=== PATIENT | female | born 1940 | race Caucasian/White ===

== ENCOUNTER 2016-10-17 10:22 | Inpatient (IN) | payer MEDICARE, OTHER ==
[~2016-10-17] VITALS: Ht 165.1 cm; Wt 81.6 kg
--- NOTE | ~2016-10-17 | CATH ---
Cardiac Diagnostic + PCI Report Demographics Patient Name FELICIANO Badillo Gender Female Date of 1940 Age 76 year(s) Patient Number [id number] Date of Study 10/17/2016 Visit Number [id number] Room Number G6338 [place] [id number] Ht 165.1 cm Wt 82.1 kg Referring Neha Primary Physician Physician Cristal ORTIZ Performing Neha Secondary Physician Physician Cristal ORTIZ Diagnostic Neha Assisting Physician Physician Cristal ORTIZ Interventional Neha Physician E Commerce Marketing Manager Physician Cristal ORTIZ Findings and Conclusions Diagnostic Findings and Conclusion Normal LVEDP 2 Ao 150/80 No gradient. Cause of elevated troponin unclear. LAD stent patent. Ostial Diagonal 1 50% (site of previous POBA) Proximal RCA:80%. Mid RCA: 75%. Diagnostic Recommendations iFR of RCA Interventional Findings and Conclusion Normalized in aorta. iFR distal RCA 0.99 iFR proximal CA 0.99 Interventional Recommendations Ok for cholecystectomy next week. Aggressive secondary preventative measures. Stress in 6 months. Procedure Description The patient was brought to the diagnostic cardiac catheterization-EP laboratory in the fasting, non-sedated state. Informed consent was obtained in the written and verbal form after the risks and benefits were explained. The patient had no further questions and agreed to proceed. The planned puncture-incision site(s) were shaved and prepped with ChloraPrep and draped in the usual sterile manner. Conscious sedation, supplemental oxygen, and pain control medications were delivered by a registered nurse under physician guidance. Surface ECG rhythm, blood pressure measurement, and pulse oximetry were monitored throughout the procedure. Arterial access. The access site was infiltrated with lidocaine. The vessel was entered with the Seldinger technique. A sheath was advanced into the vessel and used for catheter placement. Selective left coronary angiography. A catheter was advanced into the left coronary vessel ostium under Fluoroscopic guidance. Contrast was injected by hand. Images were obtained in multiple projections. Selective right coronary angiography. A catheter was advanced into the right coronary vessel ostium under fluoroscopic guidance. Contrast was injected by hand. Images were obtained in multiple projections. Left heart catheterization. A catheter was advanced across the aortic valve to the left ventricle under fluoroscopic guidance. Resting hemodynamics were obtained. iFR measurement was performed. The vessel was entered with a guiding catheter. The iFR wire was normalized and then advanced across the lesion. Measurements were taken. Arterial artery hemostasis was achieved. The patient was transferred to a regular nursing floor via cart accompanied by a nurse. The patient left the laboratory in stable condition. Diagnostic Cath Status: Urgent Interventional Cath Status: Urgent Procedure Procedure Type Diagnostic procedure:Angiography:, Coronary Angios /[facility] PCI procedure:Additional Imaging:, FFR/iFR:, Initial Vessel Indications: Non-ST elevation OR. The procedure was explained in detail to the patient. Risks, complications and alternative treatments were reviewed. Written consent was obtained. Medications Reviewed with Patient prior to Procedure. Angiographic Findings Dominance: Right Cardiac Arteries and Lesion Findings LMCA: Normal (0% Stenosis).Short LAD: Proximal lesion is long smooth 25%. LAD is type 3. Mid LAD stent patent.There is a previous stent on Mid LAD Ostial. Lesion on Prox LAD: 25% stenosis . Lesion on 1st Diag: Ostial.50% stenosis . LCx: Moderate diffuse disease. Lesion on Prox CX: 30% stenosis .The lesion was diffuse. RCA: Moderate diffuse disease. Lesion on Mid RCA: FFR + + + + !FFR !Stage/Medication !Dosage ! + + + + !0.99 ! ! ! + + + + Devices used - Verrata Pressure Wire. Number of passes: 1. Lesion on Prox RCA: 80% stenosis . Lesion on Mid RCA: 80% stenosis .The lesion was diffuse. Coronary Tree Procedure Data Procedure Date Date: 10/17/2016Start: 03:05 PMEnd: 04:20 PM Entry Locations - Retrograde Percutaneous access was performed through the Right Radial artery (Primary location). A 6 Fr sheath was inserted. Unsuccessful closure attempt was performed using: an R band. Hemostasis was successfully obtained using Mechanical Compression. Closure Comments: 14 cc of air in the R band deployed by . Procedure Medications Order and Administration + + +--------+ + !Time !Medication !Dosage !Route ! + + +--------+ + !10/17/2016 !Versed !1 mg !I.V. ! !03:02 PM ! ! ! ! + + +--------+ + 10/17/2016 !Fentanyl !50 mcg !I.V. ! !03:02 PM ! ! ! ! + + +--------+ + 10/17/2016 !ZANE Radial Cocktail: Nitroglycerin ! !I.A. ! !03:08 PM !100mcg, Verapamil 3 mg, Lidocaine 40mg ! ! ! ! !(ACC_3) ! ! ! + + +--------+ + !10/17/2016 !0.9% NaCl !125 !I.V. drip ! !03:11 PM ! !ml/hr ! ! + + +--------+ + !10/17/2016 !Heparin (ACC_3) !2500 !I.V. bolus! !03:22 PM ! !units ! ! + + +--------+ + !10/17/2016 !Heparin (ACC_3) ! !I.V. bolus! !03:47 PM ! ! ! ! + + +--------+ + Devices Used - A6 Fr. BS JR 4 Diag. Catheterwas used for:Right coronary angiography. - A6 Fr. BS JL 3.5 Diag. Catheterwas used for:Left coronary angiography. - A6 Fr. JR4 Guide Catheterwas used for:RCA Intervention. Contrast Material - Isovue 158257 ml Fluoroscopy Time: Diagnostic: 8:42 minutes. Total: 8:42 minutes. Fluoroscopy Dose: Diagnostic: 1203 mGy. Total: 1203 mGy. Estimated Blood Loss: 30 ml. Additional [facility] PCI Information PCI Indication:PCI for high risk Non-STEMI or unstable angina. Medical History Allergies - Iodine. - Iodine. Risk Factors The patient risk factors include:prior PCI on 05/08/2015;treated hypercholesterolemia, treated hypertension, family history of premature CAD, last creatinine: 0.9 mg/dl, creatinine clearance: 70 ml/min, dyslipidemia and prior OR . Admission Data Admission Date: 10/17/2016 Admission Time: 01:48 PM Admit Source: Emergency department Insurance Payors: Medicare. Admission Medications + +------+------+ + + + + !Medication !Dosage!Times !Last !Last !Administered !Comments ! ! ! !Per !Delivery !Delivery ! ! ! ! ! !Day !Date !Time ! ! ! + +------+------+ + + + + !Aspirin ! ! ! ! !Yes ! ! !(any) ! ! ! ! ! ! ! + +------+------+ + + + + !Statin (any)! ! ! ! !Yes ! ! + +------+------+ + + + + !Beta Kyler! ! ! ! !Yes ! ! !(any) ! ! ! ! ! ! ! + +------+------+ + + + + !BRIAN ! ! ! ! !Yes ! ! !Inhibitor ! ! ! ! ! ! ! !(any) ! ! ! ! ! ! ! + +------+------+ + + + + !ARB (any) ! ! ! ! !Yes ! ! + +------+------+ + + + + !Ticagrelor ! ! ! ! !Yes ! ! + +------+------+ + + + + Clinical Evaluation Leading to Procedure - The patient's CAD presentation was assessed as: Non-STEMI. - There were no anginal symptoms. Anti-anginal medications were prescribed during the past two weeks. The medication is: Beta Blockers. Hemodynamics Condition: Rest O2 Consumption: Estimated: 173.27Heart Rate: 71 bpm Pressures (mmHg) +-----+ + !Site !Pressure ! +-----+ + !LV !152/3 ,8 ! +-----+ + !LV !155/-3 ,2 ! +-----+ + !LV !147/-3 ,2 ! +-----+ + !AO !159/88 (119) ! +-----+ + !LV !145/0 ,1 ! +-----+ + !AO !143/77 (107) ! +-----+ + !AO !159/78 (112) ! +-----+ + Valve Gradients and Areas + +---------+---------+---------+ +---------+ + !Valve !Peak !Mean !Area !Index !Flow !Source ! + +---------+---------+---------+ +---------+ + !Aortic !0 !0 ! ! ! ! ! + +---------+---------+---------+ +---------+ + !Aortic !0 !0 ! ! ! ! ! + +---------+---------+---------+ +---------+ + Shunts Oxygen Values O2 Capacity 195.84 O2 Consumption 173.27 Discharge Data Discharge Date: 10/18/2016 Hospital Status: Inpatient Signatures dtt: Cristal Solomon dtmarely: 10/17/16 1505 Physician Self Edit
--- NOTE | ~2016-10-17 | HP ---
PATIENT'S NAME: JESSE WIGGNIS [facility] AGE: 76 Y [address] ROOM: [place] [address] LOCATION: GPCU ADMIT DATE: 10/17/2016 History & Physical DISCHARGE DATE: FAMILY PHYSICIAN: LUCIO VENCES ATTENDING PHYSICIAN: Aminata KEMP DATE OF SERVICE: CHIEF COMPLAINT: Epigastric pain. HISTORY OF PRESENT ILLNESS: The patient is a 76-year-old female with past medical history of CAD, status post stent on May 2015 on the LAD, hypertension, hyperlipidemia, who presents here with epigastric pain from [facility]. The patient reports that around 5:21 a.m., she experienced sharp sudden epigastric pain. She reports that the pain radiates to her right upper quadrant and to the back. It was associated with nausea and vomiting. She reports that she had 3-4 episodes of nausea and vomiting, nonbloody. She reports the pain was constant without exacerbating and alleviating factors. The patient reports that she has not taken any of her medication today and went to [facility]. At [facility], the patient was evaluated and was noted to have elevated bilirubin and was transferred to our emergency department for further evaluation. The patient reports that she has had these bouts of abdominal pain twice in the past, close to 4-7 weeks ago. The patient denies any chest pain, shortness of breath, fever, productive cough, orthopnea, leg swelling, and paroxysmal nocturnal dyspnea. MEDICAL HISTORY: CAD, hypertension, hyperlipidemia. SURGICAL HISTORY: , coronary angiogram, tonsillectomy. FAMILY HISTORY: Mother had a history of coronary artery disease. Dad was a healthy gentleman. 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 MEDICATIONS: Currently being reconciled. REVIEW OF SYSTEMS: All systems have been reviewed and are negative except for what I mentioned in PATIENT'S NAME: JESSE WIGGINS [facility] AGE: 76 Y [address] ROOM: [place] [address] LOCATION: GPCU ADMIT DATE: 10/17/2016 History & Physical DISCHARGE DATE: FAMILY PHYSICIAN: LUCIO VENCES ATTENDING PHYSICIAN: Aminata KEMP the HPI. PHYSICAL EXAMINATION: VITAL SIGNS: Afebrile, blood pressure 186/86, heart rate of 63, respiratory rate of 16, and 97% saturating on room air. GENERAL APPEARANCE: The patient alert and awake. No acute distress. HEAD: Normocephalic, atraumatic. EYES: Extraocular muscle intact. SKIN: Warm to touch. MOUTH: Moist oral mucosa. NOSE: No nasal discharge. EARS: No ear discharge. HEART: Regular rate and rhythm. No murmurs, rubs, or gallops. LUNGS: Clear to auscultation bilaterally. ABDOMEN: Mild epigastric tenderness. No guarding. No rebound. Also right upper quadrant tenderness. Positive Santiago sign. Bowel sounds present. Abdomen is soft, nondistended. HOBBING PRESS OPERATOR: The patient alert and oriented x3. Motor and sensory grossly intact. MUSCULOSKELETAL: Range of motion intact. No obvious joint effusion. LABS: Troponin 0.065. White blood cell count of 6.2, hemoglobin 14.4, platelet of 226, glucose 123, BUN 18, creatinine 0.9. Sodium 139, potassium 3.7, chloride 104, CO2 28, albumin 3.8, AST/ALT 128/94, alkaline phosphatase of 76, total bilirubin of 1.7. Ultrasound of right upper quadrant done, positive for cholelithiasis and swelling of the gallbladder wall per Dr. Morgan, preliminary report. EKG shows normal sinus rhythm. Normal axis. No ischemic ST and T-wave changes. ASSESSMENT AND PLAN: 1. Acute cholecystitis. The patient does not appear septic. White blood cells within normal limits. No fever or chills. We will keep the patient n.p.o., discussed case with Dr. Qureshi for possible cholecystectomy. To hold aspirin for now. The patient is being seen by caseworker for cardiac clearance. The patient is having echocardiogram currently. To keep the patient n.p.o. for possible cholecystectomy. 2. Elevated troponin most likely secondary to [id number] elevation myocardial infarction, type 2 due to demand. Denies any chest pain. EKG unremarkable. Troponin mildly elevated. Cardiology on board for cardiac clearance. 3. History of coronary artery disease. We will continue Lipitor and beta parker. To hold aspirin for now, we will await for Cardiology PATIENT'S NAME: JESSE WIGGINS [facility] AGE: 76 Y [address] ROOM: [address] [place] [id number] LOCATION: [facility] ADMIT DATE: 10/17/2016 History & Physical DISCHARGE DATE: FAMILY PHYSICIAN: LUCIO VENCES ATTENDING PHYSICIAN: Aminata KEMP recommendation in terms of aspirin use. 4. Hypertension uncontrolled. The patient reports that she is not taking her medication and there might be some component of pain. We will control pain. We will start Lopressor. 5. Dehydration. The patient reports multiple nausea and vomiting. We will start the patient on IV fluid. We will hold diuretic medication. 6. Nausea and vomiting. We will have antiemetic medication. 7. Epigastric pain. Pain controlled. 8. Hypothyroidism. Continue Synthroid. 9. Obesity, ongoing. Greater than 40 minutes was spent on patient care. Assessment and plan was discussed with the patient and Dr. Qureshi and Dr. Morgan. We will await the Cardiology recommendation. We will keep the patient n.p.o. Greater than 50% of time was spent on discussion with webmethods consultant and data gathering. We will admit the patient over inpatient. Code status was discussed with the patient on admission. CODE STATUS: Full code. MD THOMAS WAY/salvatore /[id number] D: [id number] T: 549 HISTORY & PHYSICAL
--- NOTE | ~2016-10-17 | CON ---
PATIENT'S NAME: JESSE WIGGINS [facility] AGE: 76 Y [address] ROOM: [place] [address] [facility] ADMIT DATE: 10/17/2016 Consultation DISCHARGE DATE: FAMILY PHYSICIAN: LUCIO VENCES ATTENDING PHYSICIAN: Aminata KEMP DATE OF CONSULTATION: 10/17/2016 REFERRING PHYSICIAN: Basil Qureshi MD CHIEF COMPLAINT: Abdominal pain. HISTORY OF PRESENT ILLNESS: The patient is a 76-year-old female who said approximately 6 weeks ago, she had a bout of severe abdominal pain, described in the right upper quadrant and right subcostal region with radiation into the back. She said this happened after eating corn with butter on it. She did not have another episode until 3 weeks ago where she described similar symptoms of pain in the right upper quadrant and radiation into the back. She had a bout today. This woke her up at 5 a.m. where she developed right upper quadrant pain with radiation into the back as well as nausea and vomiting. The patient states that in between this, she does get some intermittent heartburn. It seems to be worse with greasier meals, but has not had severe pain. She was seen in [place] today where she was felt to have acute cholecystitis. Her white blood cell count was normal. Bilirubin was at 1.6. She was then sent to [facility] for further evaluation. She had an ultrasound of the right upper quadrant that revealed gallstones and gallbladder wall thickening. No pericholecystic fluid. By the time she was seen at [facility], her pain essentially had subsided; however, she had some epigastric pain with this, and cardiac enzymes were drawn. She had elevation of her cardiac enzymes and does carry a history of coronary artery disease with previous stenting. Her enzymes were followed, and there was further elevation. Present because of this, Cardiology was consulted. CURRENT MEDICATIONS: Include: 1. Calcium. 2. Aspirin. 3. Carvedilol. 4. Levothyroxine. 5. Atorvastatin. 6. Hyzaar. 7. Vitamin D. ILLNESSES: PATIENT'S NAME: JESSE WIGGINS [facility] AGE: 76 Y [address] ROOM: [place] [address] LOCATION: GPCU ADMIT DATE: 10/17/2016 Consultation DISCHARGE DATE: FAMILY PHYSICIAN: LUCOI VENCES ATTENDING PHYSICIAN: Aminata KEMP Coronary artery disease and hypercholesterolemia. SOCIAL HISTORY: She is a nonsmoker and nondrinker. PAST SURGICAL HISTORY: , stent in May 2015. ALLERGIES: BRIAN INHIBITOR CAUSES COUGH. REVIEW OF SYSTEMS: She denies headache or vision changes. Had some chest pain with the epigastric pain. Denies shortness of breath. She has had no melena or hematochezia. No hematuria or dysuria. No frequent postprandial nausea. PHYSICAL EXAMINATION: GENERAL: A pleasant, cooperative, 76-year-old female who currently is in no acute distress. HEENT: Head is normocephalic and atraumatic. Eyes are anicteric. NECK: Without lymphadenopathy. HEART: Regular rate and rhythm. No murmurs audible. LUNGS: Clear to auscultation bilaterally. ABDOMEN: Soft. It is currently nontender to palpation. There are no palpable masses. She has a vertical midline incision from previous section. EXTREMITIES: Otherwise warm. No edema. NEUROLOGIC: Gross motor is intact. ASSESSMENT: 1. Biliary colic with cholelithiasis. 2. Elevated cardiac enzymes. PLAN: At this point in time, she is being evaluated by Cardiology who felt, with her increasing cardiac enzymes and history of coronary artery disease, that she should have a cardiac catheterization. Currently, she does not have an acute abdomen, really is having no abdominal pain, and it is reasonable to continue to watch her gallbladder, although I think it would be best to remove the gallbladder in the near future. We will await her cardiac cath results, but likely will plan cholecystectomy as an outpatient as her symptoms really do sound more like biliary colic. PATIENT'S NAME: JESSE WIGGINS [facility] AGE: 76 Y [address] ROOM: [address] [place] [address] LOCATION: GPCU ADMIT DATE: 10/17/2016 Consultation DISCHARGE DATE: FAMILY PHYSICIAN: LUCIO VENCES ATTENDING PHYSICIAN: Aminata KEMP MD CECILIA SOLIS/salvatore /[id number] d: 10/17/16 1849 t: 10/30/16 1331, CONSULTATION REPORT
--- NOTE | ~2016-10-17 | ECHO ---
Transthoracic Echocardiography Report (TTE) Demographics Patient Name JESSE WIGGINS Date of Study 10/17/2016 J Patient Number [id number] Visit Number [id number] Date of 1940 Room Number G6338 Gender Female Number Age 76 year(s) Referring Eddie Willis MD Crm Administrator Esequiel Rausch RDCS, RVT, Physician RDMS, CLASSROOM TEACHER Physician Interpreting Neha Bee MD Ball Worker Physician Supervising Ordering Eddie Willis MD, MD/MLP Physician Nurse Stress Linderman Machine Operator Conclusions Contractility Score Summary Normal Left Ventricular contractility was noted. Summary The estimated left ventricular ejection fraction is 60-65% with normal WM. The left ventricle is normal in size . Mild to moderate concentric left ventricular hypertrophy. Elevated left ventricular filling pressures. Increased LA pressures. Moderate mitral annular calcification. Mild to moderate calcification of the mitral valve. Mild-moderate mitral regurgitation by color Doppler. There is a 3 cm. focal calcified plaque in the ascending aorta near the aortic root. The aortic valve is mildly sclerotic. Mild-moderate tricuspid regurgitation by color Doppler. There is mild pulmonary hypertension. The pulmonary pressure (RVSP) is 38 mmHg. Procedure Type of Study TTE procedure:2D Echocardiogram, M-Mode, Doppler , Color Doppler. Procedure Date Date: 10/17/2016 Start: 12:18 PM Study Location: ER Technical Quality: Adequate visualization Additional Indications:HX: Stent cardiac, Elevated troponins, chest discomfort. Patient Status: STAT HR: 62 bpm BP: 186/86 mmHg Allergies - Iodine. - Iodine. M-Mode/2D Measurements LV Diastolic Dimension: 3.8 cm LV Systolic Dimension: 2.45 cm LV Septum Diastolic: 1.35 cm LV PW Diastolic: 1.29 cm AO Root Dimension: 2.4 cm AV Cusp Separation: 2.4 cm RV Diastolic Dimension: 3.3 cm LA Dimension: 3.6 cm EF Estimated: 65 % LA volume: 54 ml RV Base: 3.2 cm LVOT: 1.9 cm RV Mid: 2.5 cm RV Length: 5.5 cm TDI-S': 17 cm/s Doppler Measurements AV Peak Velocity: 1.19 m/s MV Peak E-Wave: 0.8 m/s AV Peak Gradient: 5.66 mmHg MV Peak A-Wave: 1.25 m/s LVOT Peak Velocity: 1.01 m/s MV E/A Ratio: 0.64 MV P1/2t: 104 msec TR Velocity:2.97 m/s TR Gradient:35.28 mmHg Estimated RVSP: 38 mmHg PV Peak Velocity: 1.05 m/s E' Septal Velocity: 0.04 m/s PV Peak Gradient: 4.41 mmHg E' Lateral Velocity: 0.04 m/s Estimated PASP: 38.28 mmHg MV E/E' Ratio: 20 A' Septal Velocity: 0.11 m/s Findings Left Ventricle The left ventricle is normal in size . Mild to moderate concentric left ventricular hypertrophy with normal EF and WM. E/e' ratio of 20 is consistent with elevated left ventricular filling pressures. Right Ventricle Normal right ventricle structure and function. Left Atrium Normal left atrial size. Increased LA pressures. Right Atrium Normal right atrial size. IVC imaging is consistent with normal RA pressures. Mitral Valve Moderate mitral annular calcification. Mild to moderate calcification of the mitral valve. Mild-moderate mitral regurgitation by color Doppler. Aortic Valve There is a 3 cm. focal plaque near the aortic root. The aortic valve is mildly sclerotic. Tricuspid Valve Mild-moderate tricuspid regurgitation by color Doppler. There is mild pulmonary hypertension. The pulmonary pressure (RVSP) is 38 mmHg. Pulmonic Valve Normal pulmonic valve structure and function. Pericardial Effusion No evidence of pericardial effusion. Miscellaneous There is moderate plaque seen in the ascending aorta. Pleural Effusion No evidence of pleural effusion. Signature dtt: Cristal Solomon dtd: 10/17/16 1218 Physician Self Edit
--- NOTE | ~2016-10-17 | DS ---
PATIENT'S NAME: JESSE WIGGINS [facility] AGE: 76 Y [address] ROOM: [id number] [place], [place] [address] LOCATION: GPCU ADMIT DATE: 10/17/2016 Discharge Summary DISCHARGE DATE: 10/18/2016 FAMILY PHYSICIAN: Selene Mercado ATTENDING PHYSICIAN: Aminata Alcazar ADMITTING DIAGNOSIS: Acute cholecystitis. DISCHARGE DIAGNOSIS: Acute cholecystitis. SECONDARY DIAGNOSES: 1. Elevated troponin. 2. History of coronary artery disease. 3. Hypertension. 4. Hyperlipidemia. PROCEDURES DONE: Echocardiogram which shows ejection fraction of 60% to 65%. Ultrasound shows thickened gallbladder with stone. Coronary angiogram shows a lesion of stenosis of 80% with normal FFR, with no intervention by Dr. Solomon. CONSULTATIONS: Cardiology and General Surgery. HISTORY OF PRESENT ILLNESS: The patient is a 76-year-old female with a past medical history of CAD, status post stent in April 2005 on the LAD; hypertension; and hyperlipidemia, who presents here with epigastric pain from [facility]. The patient reports that around 5:21 a.m., she experienced sharp, sudden epigastric pain. She reports that the pain radiated to her right upper quadrant and back and was associated with nausea and vomiting. The patient had 3 to 4 episodes of nausea and vomiting, nonbloody. The patient reports that the pain was constant without exacerbating or alleviating factors. The patient reports that she has not taken any of her medications today and went to [facility]. At the [facility], the patient was evaluated, was noted to have elevated bilirubin, and was transferred to our emergency department for further evaluation. HOSPITAL COURSE: The patient was initially seen in the emergency department. Her ultrasound shows gallbladder wall thickening and mildly elevated troponin. Echocardiogram was unremarkable. However, repeat cardiac enzyme was noted to be mildly elevated. Dr. Solomon was consulted. Dr. Solomon assessed. The patient had coronary angiogram. Angiogram showed lesion of 80%; however, was not intervened as the FFR was within accepted physiology changes. The patient, during stay, did not have any chest pain. She was observed overnight. Dr. Qureshi saw the patient. The patient is scheduled to have surgery on Thursday. The patient also was okayed to continue her baby aspirin PATIENT'S NAME: JESSE WIGGINS [facility] AGE: 76 Y [address] ROOM: [facility] [place] [address] LOCATION: GPCU ADMIT DATE: 10/17/2016 Discharge Summary DISCHARGE DATE: 10/18/2016 FAMILY PHYSICIAN: Selene Mercado ATTENDING PHYSICIAN: Aminata Alcazar per Dr. Qureshi. CONDITION: Stable. DISPOSITION: Home DISCHARGE MEDICATIONS: Please see MAR. FOLLOWUP: To follow up with Dr. Qureshi and Dr. Herrera as outpatient. PHYSICAL EXAMINATION: VITAL SIGNS: Stable. HEENT: Head is normocephalic and atraumatic. CHEST: Clear to auscultation bilaterally. HEART: Regular rate and rhythm. No murmurs, rubs, or gallops. ABDOMEN: Soft, nontender, and nondistended. Bowel sounds present. SKIN: Warm to touch. CENTRAL NERVOUS SYSTEM: Alert and awake. Moves all extremities. Greater than 30 minutes were spent on patient care. MD THOMAS WAY/salvatore /[id number] d: 10/18/16 1521 t: 11/01/16 1552, DISCHARGE SUMMARY
--- NOTE | ~2016-10-17 | CON ---
PATIENT'S NAME: MELISSA BENITEZ [facility] AGE: 76 Y [address] ROOM: [address] [place], [place] [address] LOC[facility] ADMIT DATE: 10/17/2016 Consultation DISCHARGE DATE: FAMILY PHYSICIAN: LUCIO VENCES ATTENDING PHYSICIAN: Aminata KEMP DATE OF CONSULTATION: 10/17/2016 REFERRING PHYSICIAN: Basil Qureshi MD This is a patient of Dr. Morgan. Dear Dr. Morgan, Thank you for asking me to see Melissa who is a 76-year-old female patient who presented to [facility] [place] with right upper quadrant pain radiating through to the back. The pain was quite severe and lasted quite a while. Initial evaluation there revealed elevated troponin and she was sent over here for further management. The patient has history of right upper chest, right shoulder, and right arm pain, associated with shortness of breath in May of 2015, which ended up being a [id number] elevation IL. She underwent a drug-eluting stent to mid LAD and a plain old balloon angioplasty to a diagonal. There was a residual 60% lesions x2 in the right coronary artery. She is being managed medically at this time. Since then, she has not had any chest pains of any kind. About 6 weeks ago, she had same pain that she had today, which is consistent with gallbladder pain. This reoccurred about 3 weeks ago as well, but this time it was a lot severe and she ended up going to her doctor. The patient has not had any symptoms like her non-STEMI pain. She has been in functional class 2 with no paroxysmal nocturnal dyspnea or orthopnea. She has never been diagnosed with sleep apnea. She does not have a structured exercise program. She does mow the lawn 2 times a week by walking behind a self-propelled charge operator. It appears as if she might do that for about half an hour or so, then stop for about 15-20 minutes and do that again. She denies any lightheadedness, dizziness, syncope, presyncope, palpitations, or ankle swelling. The patient has history of hypertension and elevated cholesterol. There is some family history of premature coronary artery disease in her mother having bypass grafting in her 60s. There is no history of diabetes or tobacco abuse. The patient has no history of rheumatic fever or heart murmur. She has no history of congestive heart failure or atrial fibrillation. Last year when she had her non-STEMI, her septum was significantly PATIENT'S NAME: MELISSA BENITEZ [facility] AGE: 76 Y [address] ROOM: [address] [address] LOCATION: [facility] ADMIT DATE: 10/17/2016 Consultation DISCHARGE DATE: FAMILY PHYSICIAN: LUCIO VENCES ATTENDING PHYSICIAN: Aminata KEMP. MEDICATIONS: Her current list of medications are: 1. Aspirin 81 mg a day. 2. Carvedilol 12.5 mg b.i.d. 3. Levothyroxine 100 mcg a day. 4. Atorvastatin 40 mg a day. 5. Hyzaar 100/25 half a tablet once a day. 6. Vitamin D3 1000 units a day. ALLERGIES: BRIAN INHIBITORS CAUSED HER COUGH. PAST MEDICAL HISTORY: 1. Disk surgery in 2003. 2. Tonsillectomy and adenoidectomy. 3. . SOCIAL HISTORY: The patient is . 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 She denies abusing alcohol. Her appetite and weight are stable. Sleep is fair. She does not use any recreational drugs. FAMILY HISTORY: Positive for premature coronary artery disease in her mom in her late 60s. REVIEW OF SYSTEMS: 12-point review of systems revealed: 1. Corrective lenses. 2. Heartburns. 3. Dry cough. 4. DJD. PHYSICAL EXAMINATION: VITAL SIGNS: Her blood pressure is 140/80, heart rate is in the 60s and regular, respirations are 18, and afebrile. HEENT: Normal. NECK: Supple with no JVD, thyromegaly, lymphadenopathy, or carotid bruit. HEART: PMI is not well located. First and second heart sounds are regular. There are no added sounds or murmurs. CHEST: Clear to auscultation. ABDOMEN: Soft and nontender now. Bowel sounds are normally present. EXTREMITIES: No edema. CENTRAL NERVOUS SYSTEM: Intact. PATIENT'S NAME: MELISSA BENITEZ [facility] AGE: 76 Y [address]: [address] [address] LOCATION: [facility] ADMIT DATE: 10/17/2016 Consultation DISCHARGE DATE: FAMILY PHYSICIAN: LUCIO VENCES ATTENDING PHYSICIAN: Aminata KEMP LABORATORY DATA: A 12-lead EKG is essentially unremarkable. Her troponin is borderline elevated at 0.06. ASSESSMENT: A 76-year-old female patient who has had percutaneous coronary intervention about a year ago, presents with what appears to be gallbladder pain though. She has elevated troponins at this time. Because this pain is fairly atypical, we will check that the troponin again, but given the fact that she had 60% lesions x2 in her right coronary artery, which was not addressed and also a PCI to mid LAD as well as a PTCA to a diagonal and if her troponin goes up, it may be reasonable to cath her right away before proceeding with any other additional surgical procedures. Again, I appreciate this opportunity to participate in the care of Mrs. Benitez. MD ZANE HOLLOWAY/salvatore /[id number] d: 10/17/161810 t: 10/27/16 08, CONSULTATION REPORT
--- NOTE | ~2016-10-17 | ER ---
PATIENT'S NAME: JESSE BENITEZ [facility] [place] AGE: 76 Y [address] ROOM: [place] [address] [facility] ADMIT DATE: 10/17/2016 ER/Outpatient Report DISCHARGE DATE: FAMILY PHYSICIAN: LUCIO VENCES ATTENDING PHYSICIAN: Aminata ALCAZAR CHIEF COMPLAINT: Epigastric pain. HISTORY OF PRESENT ILLNESS: Ms. Benitez woke up at 5:21 a.m. with severe pain in her epigastrium. This is her 3rd episode of similar over the last 2 months or so. She presented to the clinic in [place] today for evaluation, where she was found to have elevated bilirubin and there was concern for some issues there. As further evaluation was outside the scope of the clinic, they consulted Dr. Qureshi who referred her here to the ER for further evaluation as it was unclear as to exactly what was going on. The patient arrives feeling much better after having received some Demerol from the clinic. She has had a history of heart disease and had a catheterization a little over a year ago and did receive stenting. The symptoms that she has do not ever really radiate, they just kind of stick right there in the frontal area. Her prior chest pain was on the right side, however. PAST MEDICAL HISTORY: Documented on the record and reviewed by me. SOCIAL HISTORY: Documented on the record and reviewed by me. MEDICATIONS: Documented on the record and reviewed by me. ALLERGIES: DOCUMENTED ON THE RECORD AND REVIEWED BY ME. REVIEW OF SYSTEMS: All systems reviewed and negative except as noted in the HPI. PHYSICAL EXAMINATION: VITAL SIGNS: On arrival, blood pressure 186/86, pulse 63, respiratory rate 16, temperature 97.3, SpO2 is 97% on room air. Pain is rated at 2/10. GENERAL: An age-appropriate female, in no obvious pain or distress, sitting upright on the exam table with no obvious abnormalities. NEUROLOGIC: Awake and alert. GCS is 15. No focal deficits. No asymmetry. HEENT: Normocephalic, atraumatic. Eyes are PERRL. Oropharynx is clear. PATIENT'S NAME: JESSE BENITEZ [facility] AGE: 76 Y [address] ROOM: [place] [address] LOCATION: GPCU ADMIT DATE: 10/17/2016 ER/Outpatient Report DISCHARGE DATE: FAMILY PHYSICIAN: LUCIO VENCES ATTENDING PHYSICIAN: Aminata ALCAZAR NECK: Supple. Trachea is midline. CHEST: Heart is regular rate and rhythm with no murmurs. LUNGS: Clear to auscultation bilateral. No rhonchi, wheezes, or rales. ABDOMEN: Soft with some tenderness on the right side. Equivocal Santiago sign. No rebound, guarding, or masses. BACK: Normal to inspection and palpation. No CVA tenderness or spinal tenderness. EXTREMITIES: Warm and well perfused with no erythema or edema. SKIN: Clean, dry, and intact. LABORATORY DATA X-RAYS: Chest x-ray is unremarkable per my review. EKG is with some equivocal changes compared to prior studies with no clear ischemia. Right upper quadrant abdominal ultrasound reveals a thickened gallbladder wall with stones and sludge, but no dilation of the common ducts and no pericholecystic fluid. ProBNP is 342. CMS with no electrolyte abnormalities. Glucose of 123. Renal function is appropriate. Total bilirubin is 1.7. No other elevation of LFTs. GGT is 37. Amylase and lipase are within normal limits. Initial troponin I is 0.065, initial CK-MB is 6.4. Repeat CK-MB of 5.8 and troponin elevated to 0.105. CBC without appreciable abnormalities. IMPRESSION: 1. Non-ST elevation myocardial infarction. 2. Cholelithiasis without cholecystitis or choledocholithiasis. EMERGENCY DEPARTMENT COURSE: The patient was seen and evaluated at bedside. Based on her medical history and symptoms, ACS had to be considered. The patient had some nonspecific changes on her EKG and a detectable troponin, which should not be the case for her today. Dr. Solomon from Cardiology was consulted, he requested echo and proBNP, which were obtained. He saw the patient. On 2nd set of enzymes, her troponin continued to be elevated. At that time, Dr. Solomon recommended cardiac catheterization. Dr. Alcazar, hospitalist, will admit the patient primarily. Dr. Qureshi, general surgeon, did see and evaluate the patient and will follow along as needed with plans to perform cholecystectomy either in the hospital pending hospital course or electively at a later date. Please see all consultants' dictations for further definitive recommendations. Heparin was started in the ER, and the patient was admitted without further issue. PATIENT'S NAME: JESSE BENITEZ [facility] AGE: 76 Y [address] ROOM: [id number] [place] [id number] LOCATION: [facility] ADMIT DATE: 10/17/2016 ER/Outpatient Report DISCHARGE DATE: FAMILY PHYSICIAN: LUCIO VENCES ATTENDING PHYSICIAN: Aminata ALCAZAR MD ROSMERY PRUITT/salvatore /[id number] d: 10/17/16 1933 t: 10/28/16 0621, OUTPATIENT REPORT
[~2016-10-17 10:22] MED LIST: ASPIRIN (CHILDR81 MG PO; BLACK COHOSH; BRILINTA90 MG PO; CALCIUM; COREG12.5 MG PO; HAWTHORN BERRY; HYZAAR 100-251 EACH PO; LEVOTHROID (S100 MCG PO; LIPITOR80 MG PO; MELATONIN; METOPROLOL; MULTIVITAMIN; PRILOSEC20 MG PO; SIMVASTATIN; THYROID MEDICATION; TRIAMCINOLONE ACETON; VASOTEC2.5 MG PO; VITAMIN C; VITAMIN D3; [UNRECOGNIZED DRUG - OTHER]
[2016-10-17 11:03] LABS: BASOPHIL % 0.3 %; EOSINOPHIL % 0.2 %; HEMATOCRIT 40.5 % (33.0-46.0); HEMOGLOBIN 14.4 g/dL (10.0-15.0); IMMATURE GRANULOCYTE % 0.2 %; LYMPHOCYTE # 1.1 K/uL (0.8-4.0); LYMPHOCYTE % 17.4 %; MCH 32.9 pg (27.0-34.0); MCHC 35.6 gm/dL (32.0-36.5); MCV 92.5 fl (83.0-98.0); MONOCYTE # 0.3 K/uL (0.0-1.0); MONOCYTE % 4.8 %; MPV 9.8 fl (9.4-12.4); NEUTROPHIL # (ANC) 4.8 K/uL (1.8-7.8); NEUTROPHIL % 77.1 %; NRBC % 0 /100WBC (0-0.00); PLATELET COUNT 226 K/uL (150-450); RBC 4.38 M/uL (3.50-5.50); RDW-CV 12.9 % (11.9-14.6); WBC 6.2 K/uL (4.0-11.0)
[2016-10-17 11:23] LABS: ALBUMIN 3.8 gm/dL (3.5-5.0); ANION GAP 10.7 (10.0-19.0); CALCIUM 8.8 mg/dL (8.5-10.5); CREATININE 0.9 mg/dL (0.5-1.1); POTASSIUM 3.7 mMol/L (3.7-5.1); TOTAL BILIRUBIN 1.7 mg/dL (0.0-1.5); TOTAL PROTEIN 8.1 g/dL (6.0-8.4)
[2016-10-17] MEDS ORDERED: CALCIUM 600 +1 EA12 PO (17:18)
[2016-10-17] MEDS ORDERED: ASCORBIC ACID500 MG PO (17:19)
[2016-10-17] MEDS ORDERED: VITAMIN D-32000 UNI1 PO (17:19)
[2016-10-17] MEDS ORDERED: HAIR, SKIN & N1 EACH PO (17:20)
[2016-10-17 17:22] LABS: INR - (THERAPEUTIC) 1.06 (0.92-1.07); PROTIME 11.1 SECONDS (9.8-11.4)
[2016-10-20] MEDS ORDERED: BIOTIN1000 MCG PO (10:52)
[2016-10-20] MEDS ORDERED: ADULTS 50+ MUL1 EACH PO (10:53)
[2016-10-21] MEDS ORDERED: NORCO 5-325 TA1 EACH PO (14:09)
== END 2016-10-18 11:40 | disposition disaster alternative care site (69) | DRG 281 ==
LOC: GMED 10:22 → GPCU 13:48
PROVIDERS: Emergency Medicine; ADMIT Internal Medicine
PROC: 4A023N7 Measurement of Cardiac Sampling and Pressure, Left Heart, Percutaneous Approach (ICD-10-PCS; principal; 2016-10-17)
PROC: B211YZZ Fluoroscopy of Multiple Coronary Arteries using Other Contrast (ICD-10-PCS; 2016-10-17)
DX: I21.4 Non-ST elevation (NSTEMI) myocardial infarction (principal); K81.0 Acute cholecystitis; E86.0 Dehydration; I25.10 Atherosclerotic heart disease of native coronary artery without angina pectoris; E03.9 Hypothyroidism, unspecified; E66.9 Obesity, unspecified; I10 Essential (primary) hypertension; E78.00 Pure hypercholesterolemia, unspecified; Z68.30 Body mass index [BMI] 30.0-30.9, adult
CPT/HCPCS: C1769; C1887; C1894; J1644; J2001; J2250; J3010; J7030

== ENCOUNTER → 2016-10-21 | Day surgery (SDC) | payer MEDICARE, OTHER ==
[~2016-10-21] VITALS: Ht 165.1 cm; Wt 80.5 kg
[~2016-10-21] MED LIST changes: +ADULTS 50+ MUL1 EACH PO; +ASCORBIC ACID500 MG PO; +BIOTIN1000 MCG PO; +CALCIUM 600 +1 EA12 PO; +HAIR, SKIN & N1 EACH PO; +NORCO 5-325 TA1 EACH PO; +VITAMIN D-32000 UNI1 PO
--- NOTE | ~2016-10-21 | OR ---
PATIENT'S NAME: JESSE WIGGINS [facility] AGE: 76 Y [address] ROOM: [place] [address] [place] [facility] [place]: 10/21/2016 OR/Procedure Report DISCHARGE DATE: FAMILY PHYSICIAN: LUCIO VENCES ATTENDING PHYSICIAN: Basil Qureshi SURGEON: Basil Qureshi MD [employer] POLICE: Kemar Man PA-C. DATE OF PROCEDURE: 10/21/2016 PREOPERATIVE DIAGNOSIS: Symptomatic cholelithiasis. POSTOPERATIVE DIAGNOSIS: Symptomatic cholelithiasis. PROCEDURE PERFORMED: Laparoscopic cholecystectomy. FINDINGS: The patient had a large number of small stones present. ESTIMATED BLOOD LOSS: Less than 20 mL. COMPLICATIONS: None. INDICATIONS: The patient is a 76-year-old female who presented with abdominal pain in the right upper quadrant, most consistent with biliary colic. However, she was found to have elevated cardiac enzymes. Because of this, she had a cardiac workup which was negative. We then discussed cholecystectomy with the patient, the risks, benefits, and alternatives, and she elected to proceed. PROCEDURE IN DETAIL: The patient was taken to the operating room. She was supine, given IV sedation, subsequently intubated. Her abdomen was prepped with ChloraPrep and sterilely draped. Local anesthetic was infiltrated just superior to the umbilicus. A transverse incision was created. The abdomen was elevated. Veress needle was inserted. Pneumoperitoneum was induced. Following this, a 5 mm trocar was inserted, followed by insertion of the camera. There was no injury from initial trocar placement. Three more trocars were then positioned, an 11 mm epigastric and two 5 mm right subcostal ports. Skin overlying the peritoneum was first anesthetized prior to making these incisions. All 3 trocars were inserted under direct visualization. The gallbladder was grasped and was elevated over the dome of the liver. The infundibulum was grasped and retracted inferolaterally to expose the Calot triangle. The cystic duct and artery were then dissected around circumferentially. A critical window was able be obtained. Both of these structures were then doubly clipped and divided. The gallbladder was then removed from the liver bed using electrocautery. There was a small vessel that was encountered near the dome of the gallbladder. A clip was placed on this. We repositioned our grasper on the infundibulum to gain further retraction and PATIENT'S NAME: JESSE WIGGINS [facility] AGE: 76 Y [address] ROOM: [place], [place] [address] [place] [facility] [place]: 10/21/2016 OR/Procedure Report DISCHARGE DATE: FAMILY PHYSICIAN: LUCIO VENCES ATTENDING PHYSICIAN: Basil Qureshi after removing this retractor, did place a small hole in the gallbladder, several small stones still in the abdominal cavity. These were all retrieved. The gallbladder was completely removed from the liver bed. It was placed in an EndoCatch bag, brought out through the epigastric port site. The abdominal cavity was then inspected. It appeared hemostatic. Clips appeared to be in good position on the cystic duct and artery. The area was irrigated. Fluid was removed. The pneumoperitoneum was released. The trocars were removed. The trocar sites appeared hemostatic. The fascia of the epigastric port site was approximated with 0 Vicryl suture, followed by skin closure of all 4 port sites with 4-0 Monocryl suture. Steri-Strips and sterile dressings were placed. Kemar Man was necessary for retraction and visualization throughout the case. The patient tolerated the procedure well. MD CECILIA SOLIS/santanal /[id number] d: 10/21/16 1750 t: 10/30/16 1331, OPERATIVE SUMMARY
== END | disposition disaster alternative care site (69) ==
LOC: GPOC 10-20 10:00 → GSDC 09:48
PROC: 0FT44ZZ Resection of Gallbladder, Percutaneous Endoscopic Approach (ICD-10-PCS; principal; 2016-10-21)
DX: K80.00 Calculus of gallbladder with acute cholecystitis without obstruction (principal); I10 Essential (primary) hypertension; E78.00 Pure hypercholesterolemia, unspecified; I25.2 Old myocardial infarction; I25.10 Atherosclerotic heart disease of native coronary artery without angina pectoris; Z79.82 Long term (current) use of aspirin; Z79.899 Other long term (current) drug therapy; Z88.8 Allergy status to other drugs, medicaments and biological substances; Z95.5 Presence of coronary angioplasty implant and graft; Z98.890 Other specified postprocedural states
CPT/HCPCS: J0360; J0694; J2001; J2405; J2550; J3010; J7120